=== PATIENT | female | born 1975 | race Caucasian/White ===

== ENCOUNTER 2019-04-03 20:44 | Emergency (ER) | payer BC ==
--- NOTE | 2019-04-03 22:26 | EDM.PDOC ---
ED HPI GENERAL MEDICAL PROBLEM - General Chief Complaint: Headache Stated Complaint: FELL HURT HEAD Time Seen by Provider: 04/03/19 21:50 Source of Information: Reports: Patient, Family History Limitations: Reports: No Limitations - History of Present Illness INITIAL COMMENTS - FREE TEXT/NARRATIVE: 44-year-old female slipped and fell on the back of her head hitting a concrete stair 4 hours ago. She hit so hard that she felt dizzy for several minutes, went in to lie down and slowly felt better. However she felt she needed to be checked out because she hit so hard. She denies any neck pain, bleeding, loss of consciousness or amnesia of the event. No other injury. Onset: Sudden Duration: Hour(s): (3 hours ago) Location: Reports: Head Associated Symptoms: Reports: Other (Mild dizziness initially, she feels pretty good at this time) Headache Pain Score (Numeric/FACES): 2 - Related Data Home Meds: Home Meds Levothyroxine Sodium [Levo-T] 50 mcg PO DAILY 04/03/19 [History] Phentermine HCl 37.5 mg PO DAILY 04/03/19 [History] buPROPion [buPROPion XL] 300 mg PO DAILY 04/03/19 [History] Past Medical History Cardiovascular History: Reports: Hypertension Endocrine/Metabolic History: Reports: Hypothyroidism Social & Family History - Tobacco Use Smoking Status *Q: Unknown Ever Smoked - Caffeine Use Caffeine Use: Reports: Soda - Recreational Drug Use Recreational Drug Use: No ED ROS GENERAL - Review of Systems Review Of Systems: See Below Constitutional: Denies: Fever, Chills HEENT: Denies: Vision Change Respiratory: Denies: Shortness of Breath, Cough Cardiovascular: Denies: Chest Pain GI/Abdominal: Denies: Nausea, Vomiting Skin: Reports: No Symptoms Neurological: Denies: Headache, Weakness, Change in Speech Psychiatric: Reports: No Symptoms ED EXAM, HEAD INJURY - Physical Exam Exam: See Below Exam Limited By: No Limitations General Appearance: Alert, No Apparent Distress Head: Atraumatic, Other (There is a small area of tenderness on the occipital but no visual evidence of trauma such as abrasion, hematoma, swelling or bruising) Eyes: Bilateral Eye: Normal Inspection Neck: Non-Tender Respiratory: No Respiratory Distress, Lungs Clear Extremities: Normal Inspection Neurologic: No Motor/Sensory Deficits, Normal Mood/Affect, Oriented x 3, Other ( Romberg is negative, no pronator drift) Course - Vital Signs Last Recorded V/S: Last Vital Signs Temp 96.7 F 04/03/19 22:07 Pulse 84 04/03/19 22:07 Resp 16 04/03/19 22:07 BP 139/88 04/03/19 22:07 Pulse Ox 99 04/03/19 22:07 - Re-Assessments/Exams Free Text/Narrative Re-Assessment/Exam: 04/03/19 22:25 Patient was reassured that she has no significant history or physical findings indicating a CT scan is necessary at this time, I don't even think she's had a concussion. If she does have lingering symptoms such as dizziness, light sensitivity or headache or concussion may be diagnosed later. She can return anytime if she feels she is worsening or develops other concerns. Departure - Departure Time of Disposition: 22:32 Disposition: Home, Self-Care 01 Clinical Impression: Closed head injury without concussion Qualifiers: Encounter type: initial encounter Qualified Code(s): S09.90XA - Unspecified injury of head, initial encounter - Discharge Information Instructions: Head Injury, Adult, [id number] Referrals: PCP,None [Primary Care Provider] - Forms: ED Department Discharge Care Plan Goals: Ibuprofen or naproxen may be beneficial over the next several days, ice to sore areas will help and increase activity as tolerated. Return anytime if you feel you are worsening or develop other concerns. Recheck next week if not improving satisfactorily.
== END 2019-04-03 22:32 | disposition home or self-care (01) ==
LOC: JP.ED 20:44
DX: S09.90XA Unspecified injury of head, initial encounter (principal); I10 Essential (primary) hypertension; E03.9 Hypothyroidism, unspecified; Z79.899 Other long term (current) drug therapy; W10.9XXA Fall (on) (from) unspecified stairs and steps, initial encounter
CPT/HCPCS: 99283